=== PATIENT | female | born 1950 | race Caucasian/White ===

== ENCOUNTER 2022-09-26 19:08 | Emergency (ER) | payer MEDICARE, MEDICAID ==
[2022-09-26] MEDS ORDERED: Meclizine HCl 25 MG TAB ONE (19:47)
[2022-09-26] MEDS ORDERED: Sodium Chloride 0.9% 1,000 ML ONE (19:47)
[2022-09-26 19:57] LABS: #Eosinphils 0.1 thou/uL (0.0-0.7); #Lymphocytes 1.7 thou/uL (1.20-3.40); #Monocytes 0.7 thou/uL (0.11-0.59); #Neutrophils 5.5 thou/uL (1.40-6.50); %Basophils 0.6 % (0.0-1.0); %Eosinophils 0.7 % (0.0-10.0); %Lymphocytes 21.5 % (21.0-51.0); %Monocytes 8.6 % (0.0-10.0); %Neutrophils 68.7 % (42.0-75.0); Hemoglobin 15.3 g/dL (12.0-16.0); Mean Corpuscular HGB CONC 32.5 g/dL (32.0-36.0); Mean Corpuscular Hemoglobin 28.3 pg (27.0-31.0); Mean Corpuscular Volume 87.2 fl (78.0-98.0); Mean Platelet Volume 8.9 fL (7.4-10.4); Platelet Count 208 10x3/uL (130-400); RBC Distribution Width 12.2 % (11.5-14.5)
[2022-09-26 20:07] LABS: Bilirubin Negative (Negative); Blood, Urine Trace (Negative); Clarity Slightly Cloudy (Clear); Glucose, Urine (Dipstick) Negative (Negative); Ketone, Urine Negative (Negative); Leukocyte Large (Negative); Nitrite Positive (Negative); Protein, Urine (Dipstick) Negative (Neg-Trace); Specific Gravity, Urine 1.015 (1.005-1.030); Urobilinogen 0.2 mg/dL (Less than 2); pH, Urine 6.5 (5.0-9.0)
[2022-09-26 20:16] LABS: ALT (SGPT) 19 U/L (8-55); AST (SGOT) 20 U/L (5-34); Albumin 4.6 g/dL (3.4-4.8); Alkaline Phosphatase 147 U/L (40-110); Anion Gap 15 mmol/L (10-20); BUN (Urea Nitrogen) 17 mg/dL (9.8-20.1); Bilirubin, Total 0.6 mg/dL (0.2-1.2); Calc. Creatinine Clearance 0 mL/min (70-130); Calcium 10.1 mg/dL (7.8-10.44); Carbon Dioxide 29 mmol/L (23-31); Chloride 99 mmol/L (98-107); Estimated GFR 89; Globulin 2.9 g/dL (2.4-3.5); Glucose 104 mg/dL (83-110); Protein, Total 7.5 g/dL (5.8-8.1); Sodium 139 mmol/L (136-145)
[2022-09-26 20:18] LABS: Amphetamine Not Detected (NotDetected); Barbiturates Screen Not Detected (NotDetected); Benzodiazepine Screen Not Detected (NotDetected); Cocaine Metabolite Screen Not Detected (NotDetected); Medtox Control Line Valid? VALID (VALID); Methadone Not Detected (NotDetected); Methamphetamine Not Detected (NotDetected); Opiate Screen Not Detected (NotDetected); Oxycodone Screen Not Detected (NotDetected); Phencyclidine (PCP) Not Detected (NotDetected); THC/Cannabinoid Screen Not Detected (NotDetected); Tricyclic Screen Not Detected (NotDetected)
[2022-09-26 20:20] LABS: Bacteria/HPF 4+ HPF (None Seen); RBC/HPF 0-3 HPF (0-3); Squamous Epithelial None Seen HPF (0-3); WBC/HPF Greater Than 50 HPF (0-3); Yeast-Budding 1+ HPF (None Seen)
[2022-09-26] MEDS ORDERED: Cipro 250 MG TAB ONE (20:47)
[2022-09-26] MEDS ORDERED: Promethazine 25 MG TAB ONE (22:19)
[2022-09-26] MEDS ORDERED: Atorvastatin Calcium 40 MG TAB PO SCH (22:30)
[2022-09-26 23:07] LABS: SARS-CoV-2 NAA Rapid Test Not Detected (NotDetected)
[2022-09-26] MEDS ORDERED: Meclizine HCl 25 MG TAB PO PRN (23:12)
[2022-09-26] MEDS ORDERED: Ondansetron ODT 4 MG TAB SL PRN (23:15)
[2022-09-26] MEDS ORDERED: Sodium Chloride 0.9% 1,000 ML IV SCH (23:15)
[2022-09-26] MEDS ORDERED: Acetaminophen 325 MG TAB PO PRN (23:15)
[2022-09-26] MEDS ORDERED: Ondansetron PF 4 MG/2 ML Vial IVP PRN (23:15)
[2022-09-27] MEDS ORDERED: Ciprofloxacin 500 MG TAB PO SCH (06:00)
[2022-09-27] MEDS ORDERED: Cipro 250 MG TAB ONE ×2 (06:15→18:14)
[2022-09-27] MEDS ORDERED: Sodium Chloride 0.9% 1,000 ML ONE (07:38)
[2022-09-27] MEDS ORDERED: Amlodipine 5 MG TAB PO SCH (09:00)
[2022-09-27] MEDS ORDERED: Lisinopril 10 MG TAB PO SCH (09:00)
[2022-09-27] MEDS ORDERED: Sertraline 100 MG TAB PO SCH (09:00)
[2022-09-27] MEDS ORDERED: Aspirin 325 MG TAB ONE (09:04)
[2022-09-27] MEDS ORDERED: Lisinopril 10 MG TAB ONE (09:04)
[2022-09-27] MEDS ORDERED: Amlodipine 5 MG TAB ONE (09:04)
[2022-09-27] MEDS ORDERED: Sertraline 25 MG TAB ONE (09:04)
[2022-09-27] MEDS ORDERED: Atorvastatin Calcium 40 MG TAB PO SCH (21:00)
== END 2022-09-27 20:28 | disposition short-term general hospital (02) ==
LOC: NAV ERS 19:08
DX: I10 Essential (primary) hypertension (principal); N39.0 Urinary tract infection, site not specified; E78.5 Hyperlipidemia, unspecified; Z79.899 Other long term (current) drug therapy; Z79.82 Long term (current) use of aspirin; Z20.822 Contact with and (suspected) exposure to COVID-19
CPT/HCPCS: 36415; 70450; 80053; 80306; 81003; 81015; 84484; 85025; 87077; 87086; 87186; 93005; 96360; 96361; J7050; Q0169; U0002

== ENCOUNTER 2022-12-03 16:48 | Emergency (ER) | payer MEDICARE, OTHER ==
[2022-12-03] MEDS ORDERED: HYDROcodone/Acetaminophen 5/325 mg Tablet ONE (17:24)
== END 2022-12-03 21:58 | disposition home or self-care (01) ==
LOC: NAV ERS 16:48
DX: S50.312A Abrasion of left elbow, initial encounter (principal); S80.212A Abrasion, left knee, initial encounter; M48.56XA Collapsed vertebra, not elsewhere classified, lumbar region, initial encounter for fracture; E78.5 Hyperlipidemia, unspecified; I10 Essential (primary) hypertension; Z79.899 Other long term (current) drug therapy
CPT/HCPCS: 72100

== ENCOUNTER 2023-01-02 13:42 | Emergency (ER) | payer MEDICARE, OTHER | END 2023-01-02 14:20 | disposition home or self-care (01) | LOC: NAV ERS 13:42 | DX: M62.838 Other muscle spasm (principal); E78.5 Hyperlipidemia, unspecified; I10 Essential (primary) hypertension; Z79.899 Other long term (current) drug therapy | CPT/HCPCS: 99283 ==

== ENCOUNTER 2023-04-13 11:38 | Emergency (ER) | payer MEDICARE, MEDICAID | END 2023-04-13 12:20 | disposition home or self-care (01) | LOC: NAV ERS 11:38 | DX: S50.01XA Contusion of right elbow, initial encounter (principal); E78.5 Hyperlipidemia, unspecified; I10 Essential (primary) hypertension; W01.0XXA Fall on same level from slipping, tripping and stumbling without subsequent striking against object, initial encounter; Z79.899 Other long term (current) drug therapy ==

== ENCOUNTER 2023-04-26 08:36 | Outpatient (CLI) | payer MEDICARE, MEDICAID | END 2023-04-26 08:37 | disposition home or self-care (01) | LOC: NAV RAD 08:36 | PROVIDERS: ATTEND Nurse Practitioner Family | DX: M54.9 Dorsalgia, unspecified (principal); M47.814 Spondylosis without myelopathy or radiculopathy, thoracic region | CPT/HCPCS: 72072; 72100 ==

== ENCOUNTER 2023-08-20 12:04 | Emergency (ER) | payer OTHER, MEDICARE, MEDICAID ==
[2023-08-20] MEDS ORDERED: HYDROcodone/Acetaminophen 5/325 mg Tablet ONE (12:39)
== END 2023-08-20 13:28 | disposition home or self-care (01) ==
LOC: NAV ERS 12:04
DX: S00.83XA Contusion of other part of head, initial encounter (principal); S80.211A Abrasion, right knee, initial encounter; E78.5 Hyperlipidemia, unspecified; I10 Essential (primary) hypertension; Z79.899 Other long term (current) drug therapy; W18.30XA Fall on same level, unspecified, initial encounter
CPT/HCPCS: 70450; 72125

== ENCOUNTER 2025-07-28 23:56 | Emergency (ER) | payer MEDICARE, OTHER | END 2025-07-29 01:23 | disposition home or self-care (01) | LOC: NAV ERS 23:56 | DX: H81.391 Other peripheral vertigo, right ear (principal); H74.8X1 Other specified disorders of right middle ear and mastoid; I25.10 Atherosclerotic heart disease of native coronary artery without angina pectoris; I10 Essential (primary) hypertension; E78.5 Hyperlipidemia, unspecified; K21.9 Gastro-esophageal reflux disease without esophagitis; R29.700 NIHSS score 0; Z79.899 Other long term (current) drug therapy; Z79.82 Long term (current) use of aspirin | CPT/HCPCS: 99283 ==